=== PATIENT | female | born 1985 | race Hispanic/Latino ===

== ENCOUNTER 2018-05-16 09:14 | Emergency (ER) | payer MEDICAID, OTHER ==
[2018-05-16 09:42] VITALS: RESP 18; TEMP 98.2
[2018-05-16 09:43] VITALS: BMI 29.2
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
[2018-05-16 11:08] VITALS: BP 120/78; PULSE 88; O2SAT 98
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
== END 2018-05-16 11:09 | disposition home or self-care (01) ==
LOC: ED 09:14
DX: S63.92XA Sprain of unspecified part of left wrist and hand, initial encounter (principal); X58.XXXA Exposure to other specified factors, initial encounter; F17.210 Nicotine dependence, cigarettes, uncomplicated